=== PATIENT | female | born 1945 | race Caucasian/White ===

== ENCOUNTER 2017-01-19 16:02 | Emergency (ER) | payer MEDICARE, OTHER ==
[~2017-01-19] VITALS: Ht 160 cm; Wt 81.4 kg
[~2017-01-19 16:02] MED LIST: ACET-709 PO; BACL-19 PO; GABA100C PO; METH500T97 PO; OMEP-110 PO
[2017-01-19] MEDS ORDERED: MIRT30TA PO (16:26)
[2017-01-19 18:00] VITALS: BP 127/77
== END 2017-01-19 18:04 | disposition home or self-care (01) ==
LOC: ED 17:33
DX: I80.02 Phlebitis and thrombophlebitis of superficial vessels of left lower extremity (principal)
CPT/HCPCS: 99284

== ENCOUNTER 2017-02-11 11:24 | Day surgery (SDC) | payer MEDICARE, OTHER ==
[~2017-02-11] VITALS: Ht 170.2 cm; Wt 84.2 kg
[~2017-02-11 11:24] MED LIST changes: +MIRT30TA PO
[2017-02-11 11:57] VITALS: BP 123/81
[2017-02-11] MEDS ORDERED: LIDOCAINE 1%, 20ML ONE (13:08)
[2017-02-11 15:10] LABS: GLUCOSE, CSF 59 mg/dL (40-80)
== END 2017-02-11 17:15 | disposition home or self-care (01) ==
LOC: OUT 11:24
PROVIDERS: ATTEND Psychiatry & Neurology Neurology
DX: R41.3 Other amnesia (principal)
CPT/HCPCS: 62270; 77003; 82945; 84157; 86592; 87070; 87116; 87205; 87206; 89051; J3490; 77002

== ENCOUNTER → 2017-07-26 | Outpatient (CLI) | payer MEDICARE ==
[~2017-07-26] MED LIST changes: +ACET325T14 PO; +CYAN100T PO; +DOCU-131 PO; +KETO10TA PO; +NORT10CA PO; +OXYC5CAP2 PO
== END | disposition home or self-care (01) ==
LOC: CFH 17:01
PROVIDERS: ATTEND Psychiatry & Neurology Neurology
DX: Z12.2 Encounter for screening for malignant neoplasm of respiratory organs (principal)
CPT/HCPCS: 71046

== ENCOUNTER 2017-07-28 16:12 | Inpatient (IN) | payer MEDICARE ==
[~2017-07-28] VITALS: Ht 170.2 cm; Wt 85.1 kg
[~2017-07-28 16:12] MED LIST changes: -ACET325T14 PO; -CYAN100T PO; -DOCU-131 PO; -KETO10TA PO; -NORT10CA PO; -OXYC5CAP2 PO
[2017-07-28] MEDS ORDERED: CYAN100T PO (16:31)
[2017-07-28] MEDS ORDERED: NORT10CA PO (16:31)
[2017-07-28] MEDS ORDERED: SODIUM CHLORIDE 0.9% 1,000 ML IV ONE ×2 (16:38→19:17)
[2017-07-28] MEDS ORDERED: SODIUM CHLORIDE FLUSH 10ML SYR IVF ONE (17:00)
[2017-07-28] MEDS ORDERED: SODIUM CHLORIDE 0.9% 1,000ML IVBOLUS ONE (17:00)
[2017-07-28 17:41] LABS: BASOPHILS # (AUTO) 0.03 x10^3/uL (0-0.1); BASOPHILS % (AUTO) 0 % (0-1); EOSINOPHILS % (AUTO) 0 % (1-7); LYMPHOCYTES # (AUTO) 0.95 x10^3/uL (1-3.4); LYMPHOCYTES % (AUTO) 11 % (22-44); MD NO; MEAN CORPUSCULAR HEMOGLOBIN 31.7 pg (27.0-34.8); MEAN CORPUSCULAR HGB CONC 33.1 g/dL (32.4-35.8); MEAN CORPUSCULAR VOLUME 95.8 fL (80-100); MEAN PLATELET VOLUME 7.4 fL (7.4-10.4); MONOCYTES # (AUTO) 0.62 x10^3/uL (0.2-0.8); MONOCYTES % (AUTO) 7 % (2-9); NEUTROPHILS # (AUTO) 7.02 x10^3/uL (1.8-6.8); NEUTROPHILS % (AUTO) 81 % (42-75); PLATELET COUNT 202 x10^3/uL (130-400); RED BLOOD COUNT 3.72 x10^6/uL (3.82-5.3); RED CELL DISTRIBUTION WIDTH 13.6 % (9.6-15.2)
[2017-07-28 17:55] LABS: ALBUMIN 3.3 g/dL (3.4-5.0); ANION GAP 12 mmol/L (5-15); CALCIUM 9.3 mg/dL (8.5-10.1); CHLORIDE 104 mmol/L (98-107)
[2017-07-28 17:56] LABS: SALICYLATE LEVEL < 1.7 mg/dL (2.8-20.0)
[2017-07-28 17:57] LABS: ACETAMINOPHEN 3 mcg/mL (10-30); ALANINE AMINOTRANSFERASE 22 U/L (12-78); ALKALINE PHOSPHATASE 81 U/L (45-117); BILIRUBIN,TOTAL 0.6 mg/dL (0.2-1.0); CREATININE 1.37 mg/dL (0.55-1.02); TOTAL PROTEIN 6.6 g/dL (6.4-8.2)
[2017-07-28 18:37] LABS: AMPHETAMINE SCREEN, URINE Negative (Negative); BARBITURATE SCREEN, URINE Negative (Negative); BENZODIAZEPINE SCREEN, URINE Negative (Negative); CANNABINOID SCREEN, URINE Negative (Negative); COCAINE SCREEN, URINE Negative (Negative); METHADONE SCREEN, URINE Negative (Negative); OPIATE SCREEN, URINE Positive (Negative)
[2017-07-28 18:52] LABS: CULTURE INDICATED? YES; MICROSCOPIC INDICATED
[2017-07-28] MEDS ORDERED: DOCUSATE 100 MG CAPSULE PO PRN (19:30)
[2017-07-28] MEDS ORDERED: hydrALAzine 20 MG/ML, 1ML IVPush PRN (19:30)
[2017-07-28] MEDS ORDERED: SODIUM CHLORIDE FLUSH 10ML SYR IVF PRN (19:30)
[2017-07-28] MEDS ORDERED: ACETAMINOPHEN 325 MG TABLET PO PRN (19:30)
[2017-07-28 23:34] VITALS: BP 105/65
[2017-07-29 02:51] VITALS: BP 118/64
[2017-07-29 06:54] LABS: BASOPHILS # (AUTO) 0.08 x10^3/uL (0-0.1); BASOPHILS % (AUTO) 1 % (0-1); EOSINOPHILS # (AUTO) 0.02 x10^3/uL (0-0.4); EOSINOPHILS % (AUTO) 0 % (1-7); LYMPHOCYTES # (AUTO) 2.37 x10^3/uL (1-3.4); LYMPHOCYTES % (AUTO) 30 % (22-44); MD NO; MEAN CORPUSCULAR HEMOGLOBIN 32.3 pg (27.0-34.8); MEAN CORPUSCULAR HGB CONC 33.5 g/dL (32.4-35.8); MEAN CORPUSCULAR VOLUME 96.3 fL (80-100); MEAN PLATELET VOLUME 7.4 fL (7.4-10.4); MONOCYTES # (AUTO) 0.53 x10^3/uL (0.2-0.8); MONOCYTES % (AUTO) 7 % (2-9); NEUTROPHILS # (AUTO) 4.87 x10^3/uL (1.8-6.8); NEUTROPHILS % (AUTO) 62 % (42-75); PLATELET COUNT 200 x10^3/uL (130-400); RED CELL DISTRIBUTION WIDTH 14.1 % (9.6-15.2)
[2017-07-29 07:04] LABS: ALANINE AMINOTRANSFERASE 18 U/L (12-78); ALBUMIN 3.1 g/dL (3.4-5.0); ANION GAP 7 mmol/L (5-15); CALCIUM 8.7 mg/dL (8.5-10.1); CHLORIDE 108 mmol/L (98-107); CREATININE 1.05 mg/dL (0.55-1.02)
[2017-07-29 07:06] LABS: ALKALINE PHOSPHATASE 83 U/L (45-117); BILIRUBIN,TOTAL 0.7 mg/dL (0.2-1.0); TOTAL PROTEIN 6.5 g/dL (6.4-8.2)
[2017-07-29 09:00] VITALS: BP 108/67
[2017-07-29] MEDS ORDERED: KETOROLAC 30 MG/1 ML IVPush PRN (12:30)
[2017-07-29] MEDS: CYANOCOBALOMIN 100MCG TABLET PO SCH (13:01)
[2017-07-29] MEDS: GABAPENTIN 100 MG CAPSULE PO SCH ×3 (13:01→20:40)
[2017-07-29] MEDS: ACETAMINOPHEN 325 MG TABLET PO SCH (13:01)
[2017-07-29 14:00] VITALS: BP 120/65
[2017-07-29 20:21] VITALS: BP 121/62
[2017-07-29] MEDS: BACLOFEN 10 MG TABLET PO SCH (20:40)
[2017-07-30] MEDS: ACETAMINOPHEN 325 MG TABLET PO SCH ×2 (01:03→12:39)
[2017-07-30 01:06] VITALS: BP 123/76
[2017-07-30 08:40] VITALS: BP 148/86
[2017-07-30] MEDS: GABAPENTIN 100 MG CAPSULE PO SCH (08:43)
[2017-07-30] MEDS: CYANOCOBALOMIN 100MCG TABLET PO SCH (08:44)
[2017-07-30] MEDS: BACLOFEN 10 MG TABLET PO SCH (08:44)
[2017-07-30] MEDS ORDERED: HEPARIN 5,000 UNITS/ML, 1ML SQ SCH (12:30)
[2017-07-30] MEDS ORDERED: ACET325T14 PO ×2 (13:06)
[2017-07-30] MEDS ORDERED: KETO10TA PO (13:06)
[2017-07-30] MEDS ORDERED: DOCU-131 PO (13:06)
== END 2017-07-30 15:17 | disposition home or self-care (01) | DRG 917 ==
LOC: ED 19:16 → EDIP 19:17 → 4WST 23:27
PROVIDERS: ADMIT Internal Medicine; ATTEND Internal Medicine
PROC: 0T9B70Z Drainage of Bladder with Drainage Device, Via Natural or Artificial Opening (ICD-10-PCS; principal; 2017-07-28)
DX: T40.2X1A Poisoning by other opioids, accidental (unintentional), initial encounter (principal); N17.0 Acute kidney failure with tubular necrosis; G92 Toxic encephalopathy; S42.202A Unspecified fracture of upper end of left humerus, initial encounter for closed fracture; F03.90 Unspecified dementia, unspecified severity, without behavioral disturbance, psychotic disturbance, mood disturbance, and anxiety; F43.10 Post-traumatic stress disorder, unspecified; G47.30 Sleep apnea, unspecified; G89.29 Other chronic pain; W18.11XA Fall from or off toilet without subsequent striking against object, initial encounter; Y93.89 Activity, other specified; Y92.89 Other specified places as the place of occurrence of the external cause; Y99.8 Other external cause status; Z83.3 Family history of diabetes mellitus; I12.9 Hypertensive chronic kidney disease with stage 1 through stage 4 chronic kidney disease, or unspecified chronic kidney disease; N18.9 Chronic kidney disease, unspecified; E11.22 Type 2 diabetes mellitus with diabetic chronic kidney disease
CPT/HCPCS: 36415; 80053; 80307; 80329; 81001; 82962; 85025; 87077; 87086; 87186; 96360; J1644; J1885; G0480; J7030

== ENCOUNTER 2017-08-07 11:25 | Inpatient (IN) | payer MEDICARE ==
[~2017-08-07] VITALS: Ht 162.6 cm; Wt 87.0 kg
[~2017-08-07 11:25] MED LIST changes: +ACET325T14 PO; +CYAN100T PO; +DOCU-131 PO; +KETO10TA PO; +NORT10CA PO
[2017-08-07 11:42] VITALS: BP 131/77
[2017-08-07] MEDS ORDERED: FENTANYL PF 100 MCG/2ML ONE ×2 (13:35→16:41)
[2017-08-07] MEDS ORDERED: CLINDAMYCIN 150 MG/ML, 6ML ONE (15:43)
[2017-08-07] MEDS ORDERED: hydrALAzine 20 MG/ML, 1ML IV PRN (16:00)
[2017-08-07] MEDS ORDERED: LABETALOL 5MG/ML, 20ML IV PRN (16:00)
[2017-08-07] MEDS ORDERED: ACETAMINOPHEN 325 MG TABLET PO PRN (16:00)
[2017-08-07] MEDS ORDERED: METOPROLOL 1 MG/ML, 5ML IV PRN (16:00)
[2017-08-07] MEDS ORDERED: HYDROcodone/APAP 7.5-325MG/15ML UDC PO PRN (16:00)
[2017-08-07] MEDS ORDERED: ONDANSETRON 2MG/ML, 2ML IVPush PRN (16:00)
[2017-08-07] MEDS ORDERED: HYDROmorphone 1 MG/ML, 1ML IV PRN (16:00)
[2017-08-07] MEDS ORDERED: ALBUTEROL SULFATE 2.5 MG/3 ML NPPB PRN (16:00)
[2017-08-07] MEDS ORDERED: PROMETHAZINE 25 MG/ML, 1ML IV PRN (16:00)
[2017-08-07] MEDS ORDERED: OXYcodone 5 MG/5 ML ORAL.SOL UDC PO PRN (16:00)
[2017-08-07] MEDS ORDERED: EPHEDRINE 50 MG/ML, 1ML IVPush PRN (16:00)
[2017-08-07] MEDS ORDERED: MIDAZOLAM 1 MG/ML, 2ML IV PRN (16:00)
[2017-08-07] MEDS ORDERED: DIAZEPAM 5 MG/ML, 2ML IVPush PRN (16:00)
[2017-08-07] MEDS ORDERED: SUCCINYLCHOLINE 20 MG/ML, 10ML ONE (16:19)
[2017-08-07] MEDS ORDERED: DEXAMETHASONE 4 MG/ML, 1ML ONE (16:19)
[2017-08-07] MEDS ORDERED: GLYCOPYRROLATE 0.2MG/1ML, 5ML ONE (16:19)
[2017-08-07] MEDS ORDERED: ROCURONIUM 10 MG/ML,10ML ONE (16:19)
[2017-08-07] MEDS ORDERED: CEFAZOLIN 1,000 MG ONE (16:19)
[2017-08-07] MEDS ORDERED: ONDANSETRON 2MG/ML, 2ML ONE (16:19)
[2017-08-07] MEDS ORDERED: NEOSTIGMINE 1 MG/ML, 10ML ONE (16:19)
[2017-08-07] MEDS ORDERED: PROPOFOL 10 MG/ML, 20ML ONE (16:19)
[2017-08-07] MEDS: FENTANYL PF 100 MCG/2ML IV PRN ×3 (16:30→17:00)
[2017-08-07] MEDS ORDERED: ACETAMINOPHEN 650 MG/20.3 ML UDC ONE (16:41)
[2017-08-07] MEDS ORDERED: OXYcodone 5 MG/5 ML ORAL.SOL UDC ONE (16:42)
[2017-08-07 17:56] VITALS: BP 97/60
[2017-08-07] MEDS ORDERED: BACLOFEN 10 MG TABLET PO PRN (18:30)
[2017-08-07] MEDS ORDERED: morphine SULFATE 10 MG/ML, 1ML IV PRN (18:30)
[2017-08-07] MEDS ORDERED: ONDANSETRON 2MG/ML, 2ML IV PRN (18:30)
[2017-08-07 19:18] VITALS: BP 105/66
[2017-08-07] MEDS: [UNRECOGNIZED DRUG - REMARK] MC SCH (19:30)
[2017-08-07] MEDS: POTASSIUM CHLORIDE 40 MEQ in D5%-0.45% NACL 1,000 ML IV SCH (19:30)
[2017-08-07] MEDS ORDERED: NORTRIPTYLINE 10 MG CAPSULE PO SCH (21:00)
[2017-08-07] MEDS: DIPHENHYDRAMINE 50 MG/ML, 1ML IVPush PRN (21:07)
[2017-08-07] MEDS: OXYcodone/APAP 5/325MG TABLET PO PRN (21:07)
[2017-08-07] MEDS: CEFAZOLIN PMX 1GM/50ML 50 ML IVPB SCH (23:30)
[2017-08-08 00:16] VITALS: BP 93/54
[2017-08-08 00:53] VITALS: BP 123/68
[2017-08-08] MEDS: OXYcodone/APAP 5/325MG TABLET PO PRN ×3 (01:35→10:44)
[2017-08-08] MEDS: [UNRECOGNIZED DRUG - REMARK] MC SCH ×2 (02:13→11:30)
[2017-08-08] MEDS: DIPHENHYDRAMINE 50 MG/ML, 1ML IVPush PRN (03:04)
[2017-08-08 04:11] VITALS: BP 100/55
[2017-08-08 07:31] VITALS: BP 112/59
[2017-08-08] MEDS: CEFAZOLIN PMX 1GM/50ML 50 ML IVPB SCH (08:27)
[2017-08-08] MEDS ORDERED: CYANOCOBALOMIN 100MCG TABLET PO SCH (09:00)
[2017-08-08] MEDS: POTASSIUM CHLORIDE 40 MEQ in D5%-0.45% NACL 1,000 ML IV SCH (09:06)
[2017-08-08] MEDS ORDERED: OXYC5CAP2 PO (11:36)
== END 2017-08-08 11:59 | disposition home or self-care (01) | DRG 483 ==
LOC: INTOOBSV 11:25 → 4NOR 11:25 → OBSVTOIN 08-08 09:25 → DCLOUNGE 08-08 11:40
PROVIDERS: ADMIT Orthopaedic Surgery; ATTEND Orthopaedic Surgery
PROC: 0RRK00Z Replacement of Left Shoulder Joint with Reverse Ball and Socket Synthetic Substitute, Open Approach (ICD-10-PCS; principal; 2017-08-08)
PROC: 0LS40ZZ Reposition Left Upper Arm Tendon, Open Approach (ICD-10-PCS; 2017-08-08)
PROC: 3E0T3BZ Introduction of Anesthetic Agent into Peripheral Nerves and Plexi, Percutaneous Approach (ICD-10-PCS; 2017-08-08)
DX: S42.202A Unspecified fracture of upper end of left humerus, initial encounter for closed fracture (principal); X58.XXXA Exposure to other specified factors, initial encounter; Y93.89 Activity, other specified; Y92.89 Other specified places as the place of occurrence of the external cause; Y99.8 Other external cause status
CPT/HCPCS: C1713; C1776; G0378; J0690; J1100; J2405; J2704; J2710; J3010; J3490; J0330; J1200

== ENCOUNTER 2017-08-09 17:37 | Emergency (ER) | payer MEDICARE ==
[~2017-08-09] VITALS: Ht 167.6 cm; Wt 82.0 kg
[~2017-08-09 17:37] MED LIST changes: +OXYC5CAP2 PO
[2017-08-09 19:58] VITALS: BP 104/61
== END 2017-08-09 20:00 | disposition home or self-care (01) ==
LOC: ED 19:32
DX: S40.012A Contusion of left shoulder, initial encounter (principal); S20.219A Contusion of unspecified front wall of thorax, initial encounter; W01.190A Fall on same level from slipping, tripping and stumbling with subsequent striking against furniture, initial encounter; Y93.89 Activity, other specified; Y92.098 Other place in other non-institutional residence as the place of occurrence of the external cause; Y99.8 Other external cause status
CPT/HCPCS: 71045; 99284

== ENCOUNTER 2018-01-05 14:18 | Emergency (ER) | payer MEDICARE ==
[~2018-01-05] VITALS: Ht 170.2 cm; Wt 79.8 kg
[2018-01-05 14:24] VITALS: BP 158/82
[2018-01-05 15:25] LABS: BASOPHILS # (AUTO) 0.03 x10^3/uL (0-0.1); BASOPHILS % (AUTO) 0 % (0-1); EOSINOPHILS # (AUTO) 0.06 x10^3/uL (0-0.4); EOSINOPHILS % (AUTO) 1 % (1-7); LYMPHOCYTES # (AUTO) 2.55 x10^3/uL (1-3.4); LYMPHOCYTES % (AUTO) 30 % (22-44); MD NO; MEAN CORPUSCULAR HEMOGLOBIN 31.9 pg (27.0-34.8); MEAN CORPUSCULAR HGB CONC 33.5 g/dL (32.4-35.8); MEAN CORPUSCULAR VOLUME 95.3 fL (80-100); MEAN PLATELET VOLUME 6.9 fL (7.4-10.4); MONOCYTES % (AUTO) 7 % (2-9); NEUTROPHILS # (AUTO) 5.19 x10^3/uL (1.8-6.8); NEUTROPHILS % (AUTO) 62 % (42-75); PLATELET COUNT 250 x10^3/uL (130-400); RED BLOOD COUNT 4.45 x10^6/uL (3.82-5.3); RED CELL DISTRIBUTION WIDTH 14.8 % (9.6-15.2)
[2018-01-05 15:38] LABS: ALBUMIN 3.7 g/dL (3.4-5.0); ANION GAP 9 mmol/L (5-15); CALCIUM 9.7 mg/dL (8.5-10.1); CHLORIDE 105 mmol/L (98-107)
[2018-01-05 15:42] LABS: ALANINE AMINOTRANSFERASE 26 U/L (12-78); ALKALINE PHOSPHATASE 96 U/L (45-117); BILIRUBIN,TOTAL 0.7 mg/dL (0.2-1.0); TOTAL PROTEIN 7.5 g/dL (6.4-8.2)
[2018-01-05] MEDS ORDERED: OXYcodone/APAP 5/325MG TABLET ONE (16:03)
[2018-01-05 16:23] LABS: CULTURE INDICATED? YES; MICROSCOPIC INDICATED
[2018-01-05] MEDS ORDERED: OXYcodone/APAP 5/325MG TABLET PO ONE (16:30)
== END 2018-01-05 17:42 | disposition home or self-care (01) ==
LOC: ED 17:10
DX: S22.32XA Fracture of one rib, left side, initial encounter for closed fracture (principal); W19.XXXA Unspecified fall, initial encounter; Y93.89 Activity, other specified; Y92.009 Unspecified place in unspecified non-institutional (private) residence as the place of occurrence of the external cause; Y99.8 Other external cause status; N30.00 Acute cystitis without hematuria
CPT/HCPCS: 36415; 80053; 81001; 85025; 87077; 87086; 87186; 93005; 99285

== ENCOUNTER → 2018-06-26 | Outpatient (CLI) | payer MEDICARE ==
[~2018-06-26] MED LIST changes: +OMNIPAQUE 350 MG/ML, 100ML BOTTLE ONE
== END | disposition home or self-care (01) ==
LOC: RAD 12:56
PROVIDERS: ATTEND Psychiatry & Neurology Neurology
DX: K80.20 Calculus of gallbladder without cholecystitis without obstruction (principal); N26.1 Atrophy of kidney (terminal); C80.1 Malignant (primary) neoplasm, unspecified; F03.90 Unspecified dementia, unspecified severity, without behavioral disturbance, psychotic disturbance, mood disturbance, and anxiety; R41.3 Other amnesia; K76.89 Other specified diseases of liver
CPT/HCPCS: 71260; 74177; Q9967

== ENCOUNTER → 2018-06-29 | Outpatient (CLI) | payer MEDICARE ==
[~2018-06-29] MED LIST changes: +ACET1TAB64 PO; -OMNIPAQUE 350 MG/ML, 100ML BOTTLE ONE
== END | disposition home or self-care (01) ==
LOC: RAD 14:03
PROVIDERS: ATTEND Psychiatry & Neurology Neurology
DX: G31.89 Other specified degenerative diseases of nervous system (principal)
CPT/HCPCS: 70551

== ENCOUNTER 2018-07-01 21:21 | Inpatient (IN) | payer MEDICARE ==
[~2018-07-01] VITALS: Ht 165.1 cm; Wt 78.1 kg
[~2018-07-01 21:21] MED LIST changes: -ACET1TAB64 PO
[2018-07-01] MEDS ORDERED: ACET1TAB64 PO (22:02)
[2018-07-01] MEDS ORDERED: ASPIRIN 81 MG TABLET CHEW ONE (22:29)
[2018-07-01] MEDS ORDERED: ACETAMINOPHEN 500 MG TABLET ONE (22:29)
[2018-07-01] MEDS ORDERED: ASPIRIN 81 MG TABLET CHEW PO ONE (22:30)
[2018-07-01] MEDS ORDERED: ACETAMINOPHEN 500 MG TABLET PO ONE (22:30)
[2018-07-01 22:31] LABS: BASOPHILS # (AUTO) 0.06 x10^3/uL (0-0.1); BASOPHILS % (AUTO) 1 % (0-1); EOSINOPHILS % (AUTO) 1 % (1-7); LYMPHOCYTES # (AUTO) 2.25 x10^3/uL (1-3.4); LYMPHOCYTES % (AUTO) 20 % (22-44); MD NO; MEAN CORPUSCULAR HEMOGLOBIN 32.5 pg (27.0-34.8); MEAN CORPUSCULAR HGB CONC 33.7 g/dL (32.4-35.8); MEAN CORPUSCULAR VOLUME 96.5 fL (80-100); MEAN PLATELET VOLUME 6.7 fL (7.4-10.4); MONOCYTES # (AUTO) 0.64 x10^3/uL (0.2-0.8); MONOCYTES % (AUTO) 6 % (2-9); NEUTROPHILS # (AUTO) 8.43 x10^3/uL (1.8-6.8); NEUTROPHILS % (AUTO) 74 % (42-75); PLATELET COUNT 292 x10^3/uL (130-400); RED BLOOD COUNT 3.92 x10^6/uL (3.82-5.3)
[2018-07-01 22:44] LABS: ALANINE AMINOTRANSFERASE 20 U/L (12-78); ALBUMIN 3.6 g/dL (3.4-5.0); ANION GAP 8 mmol/L (5-15); CALCIUM 8.6 mg/dL (8.5-10.1); CHLORIDE 107 mmol/L (98-107); CREATININE 2.01 mg/dL (0.55-1.02)
[2018-07-01 22:48] LABS: ALKALINE PHOSPHATASE 75 U/L (45-117); BILIRUBIN,TOTAL 0.4 mg/dL (0.2-1.0); TOTAL PROTEIN 7.3 g/dL (6.4-8.2); TROPONIN I 0.114 ng/mL (0.000-0.045)
[2018-07-01 22:55] LABS: D-DIMER 0.59 ug/mlFEU (0.00-0.52); INTERNATIONAL NORMALIZED RATIO 0.95 (0.93-1.1); PROTHROMBIN TIME 10.1 Seconds (9.6-11.5)
[2018-07-01] MEDS ORDERED: SODIUM CHLORIDE 0.9% 1,000ML IVBOLUS ONE (23:00)
[2018-07-01] MEDS ORDERED: SODIUM CHLORIDE 0.9% 1,000 ML IV SCH (23:45)
[2018-07-02] VITALS: BP 119/77
[2018-07-02] MEDS ORDERED: POLYETHYLENE GLYCOL 17 GM PACKET PO PRN
[2018-07-02] MEDS ORDERED: ONDANSETRON 2MG/ML, 2ML IVPush PRN
[2018-07-02] MEDS ORDERED: NITROGLYCERIN 0.4 MG BOTTLE (25 TABS) SL PRN
[2018-07-02] MEDS ORDERED: HYDROcodone/APAP 5/325 TABLET PO PRN
[2018-07-02] MEDS ORDERED: morphine SULFATE 10 MG/ML, 1ML IVPush PRN
[2018-07-02] MEDS ORDERED: NITROGLYCERIN 0.4 MG/SPRAY SL PRN
[2018-07-02] MEDS ORDERED: DOCUSATE 100 MG CAPSULE PO PRN
[2018-07-02] MEDS ORDERED: ACETAMINOPHEN 325 MG TABLET PO PRN
[2018-07-02 00:13] VITALS: BP 119/77
[2018-07-02] MEDS: NORTRIPTYLINE 10 MG CAPSULE PO SCH ×2 (00:49→21:10)
[2018-07-02] MEDS: ENOXAPARIN 30 MG/0.3 ML SQ SCH (05:21)
[2018-07-02 06:12] LABS: CHOLESTEROL, TOTAL 208 mg/dL (140-239)
[2018-07-02 06:16] LABS: CHOL/HDL RATIO 4.4; HDL CHOL % 23 % (28-40); HDL CHOLESTEROL (DIRECT) 47 mg/dL (40-60); LDL CHOLESTEROL,CALCULATED 88 mg/dL (54-169); LDL/HDL RATIO 1.9 (0.5-3.0); TRIGLYCERIDES 365 mg/dL (50-200); TROPONIN I 0.074 ng/mL (0.000-0.045); VLDL CHOLESTEROL 73 mg/dL (0-25)
[2018-07-02] MEDS: INSULIN LISPRO 100 UNITS/ML, PEN SQ-INSULIN SCH ×4 (07:00→21:14)
[2018-07-02 07:30] VITALS: BP 116/70
[2018-07-02] MEDS: SENNA/DOCUSATE TABLET PO SCH (08:30)
[2018-07-02] MEDS: BACLOFEN 10 MG TABLET PO SCH ×3 (08:30→21:10)
[2018-07-02] MEDS: FAMOTIDINE 20 MG TABLET PO SCH ×2 (08:30→21:10)
[2018-07-02] MEDS ORDERED: REGADENOSON 0.4 MG/5 ML SYRINGE ONE (08:49)
[2018-07-02 11:58] LABS: FREE T4 (FREE THYROXINE) 0.96 ng/dL (0.76-1.46)
[2018-07-02 12:00] VITALS: BP 114/72
[2018-07-02 12:11] LABS: FOLATE LEVEL > 20.0 ng/mL (3.1-17.5)
[2018-07-02] MEDS ORDERED: GABAPENTIN 300 MG CAPSULE PO PRN (17:00)
[2018-07-02 19:37] VITALS: BP 131/83
[2018-07-02] MEDS ORDERED: APAP/CODEINE 300/30MG TABLET PO ONE (22:30)
[2018-07-03 03:43] VITALS: BP 159/82
[2018-07-03] MEDS: ENOXAPARIN 30 MG/0.3 ML SQ SCH (05:25)
[2018-07-03 05:57] LABS: BASOPHILS # (AUTO) 0.07 x10^3/uL (0-0.1); BASOPHILS % (AUTO) 1 % (0-1); EOSINOPHILS # (AUTO) 0.23 x10^3/uL (0-0.4); EOSINOPHILS % (AUTO) 3 % (1-7); LYMPHOCYTES % (AUTO) 38 % (22-44); MD NO; MEAN CORPUSCULAR HGB CONC 33.1 g/dL (32.4-35.8); MEAN CORPUSCULAR VOLUME 96.9 fL (80-100); MEAN PLATELET VOLUME 6.8 fL (7.4-10.4); MONOCYTES # (AUTO) 0.51 x10^3/uL (0.2-0.8); MONOCYTES % (AUTO) 7 % (2-9); NEUTROPHILS # (AUTO) 3.57 x10^3/uL (1.8-6.8); NEUTROPHILS % (AUTO) 50 % (42-75); PLATELET COUNT 261 x10^3/uL (130-400); RED BLOOD COUNT 3.93 x10^6/uL (3.82-5.3); RED CELL DISTRIBUTION WIDTH 13.6 % (9.6-15.2)
[2018-07-03 05:59] LABS: CHLORIDE 111 mmol/L (98-107)
[2018-07-03 06:21] LABS: ANION GAP 9 mmol/L (5-15); CALCIUM 8.1 mg/dL (8.5-10.1); CREATININE 0.93 mg/dL (0.55-1.02)
[2018-07-03 06:57] VITALS: BP 150/76
[2018-07-03] MEDS: INSULIN LISPRO 100 UNITS/ML, PEN SQ-INSULIN SCH ×2 (07:00→11:00)
[2018-07-03] MEDS: SENNA/DOCUSATE TABLET PO SCH (09:00)
[2018-07-03] MEDS: FAMOTIDINE 20 MG TABLET PO SCH (09:04)
[2018-07-03] MEDS: BACLOFEN 10 MG TABLET PO SCH (09:04)
[2018-07-03] MEDS ORDERED: SODIUM CHLORIDE 0.9% 1,000 ML IV SCH (10:00)
[2018-07-03] MEDS ORDERED: OMNIPAQUE 350 MG/ML, 100ML BOTTLE ONE (12:47)
[2018-07-03 14:29] VITALS: BP 124/81
== END 2018-07-03 15:03 | disposition home or self-care (01) | DRG 280 ==
LOC: ED 21:44 → EDIP 23:25 → SUATTDRO 23:31 → 5SO 07-02 00:06 → 4EST 07-03 01:31
PROVIDERS: ADMIT Family Medicine; ATTEND Family Medicine
DX: I21.4 Non-ST elevation (NSTEMI) myocardial infarction (principal); N17.0 Acute kidney failure with tubular necrosis; E11.22 Type 2 diabetes mellitus with diabetic chronic kidney disease; F03.90 Unspecified dementia, unspecified severity, without behavioral disturbance, psychotic disturbance, mood disturbance, and anxiety; F43.10 Post-traumatic stress disorder, unspecified; G47.30 Sleep apnea, unspecified; G89.29 Other chronic pain; K80.20 Calculus of gallbladder without cholecystitis without obstruction; N18.9 Chronic kidney disease, unspecified; Z83.3 Family history of diabetes mellitus; Z86.72 Personal history of thrombophlebitis; Z91.19 Patient's noncompliance with other medical treatment and regimen; R29.6 Repeated falls
CPT/HCPCS: 36415; 71045; 71275; 78452; 80048; 80053; 80061; 82607; 82746; 82962; 84439; 84443; 84484; 85025; 85379; 85610; 93005; 93017; 93970; 99285; G0378; J1650; J2785; Q9967; A9502; C9898; J7030

== ENCOUNTER → 2018-10-02 | Outpatient (CLI) | payer MEDICARE, OTHER ==
[~2018-10-02] MED LIST changes: +ACET1TAB64 PO
== END | disposition home or self-care (01) ==
LOC: CFH 14:54
PROVIDERS: ATTEND Nurse Practitioner Family
DX: D25.9 Leiomyoma of uterus, unspecified (principal)
CPT/HCPCS: 76830

== ENCOUNTER → 2020-03-31 | Outpatient (CLI) | payer MEDICARE, OTHER ==
[~2020-03-31] MED LIST changes: +AMOX1TAB12 PO; +BACL20TA PO; -CYAN100T PO; +CYAN100T22 PO; +DIPH25CA61 PO; +DIVA125C2 PO; +FOLI-17 PO; +INSU100I11 SQ-INSULIN; +LEVE250T28 PO; +LEVE500T53 PO; +LEVO25TA4 PO; +MULT-90 PO; +OMEP40CA42 PO; +PRED10TA PO; +PRED50TA PO; +THIA100T67 PO; +TYRO500C2 MM; +VITA1TAB25 MT
== END | disposition home or self-care (01) ==
LOC: RAD 15:34
PROVIDERS: ATTEND Psychiatry & Neurology Neurology
DX: C34.90 Malignant neoplasm of unspecified part of unspecified bronchus or lung (principal)
CPT/HCPCS: 71046

== ENCOUNTER 2020-04-14 14:07 | Outpatient (CLI) | payer MEDICARE, OTHER | END 2020-04-14 23:59 | disposition home or self-care (01) | LOC: RAD 14:07 → STAR 23:59 | PROVIDERS: ATTEND Specialist | DX: Z01.818 Encounter for other preprocedural examination (principal); S22.000A Wedge compression fracture of unspecified thoracic vertebra, initial encounter for closed fracture; X58.XXXA Exposure to other specified factors, initial encounter; Y93.89 Activity, other specified; Y92.89 Other specified places as the place of occurrence of the external cause; Y99.8 Other external cause status | CPT/HCPCS: 93005 ==

== ENCOUNTER 2020-06-14 14:55 | Emergency (ER) | payer MEDICARE, OTHER ==
[~2020-06-14] VITALS: Ht 167.6 cm; Wt 58.1 kg
[~2020-06-14 14:55] MED LIST changes: +AMOX1TAB64 PO; +MIRT-38 PO; -MIRT30TA PO
[2020-06-14 15:10] VITALS: BP 135/85
[2020-06-14] MEDS ORDERED: NEOSPORIN OINT. PKT 1 PACKET ONE (15:33)
== END 2020-06-14 16:11 | disposition home or self-care (01) ==
LOC: ED 16:00
DX: S01.01XA Laceration without foreign body of scalp, initial encounter (principal); E11.9 Type 2 diabetes mellitus without complications; Z90.89 Acquired absence of other organs; W01.0XXA Fall on same level from slipping, tripping and stumbling without subsequent striking against object, initial encounter; Y93.89 Activity, other specified; Y92.098 Other place in other non-institutional residence as the place of occurrence of the external cause; Y99.8 Other external cause status
CPT/HCPCS: 99282

== ENCOUNTER 2021-03-13 17:05 | Emergency (ER) | payer MEDICARE, OTHER ==
[~2021-03-13] VITALS: Ht 170.2 cm; Wt 64.0 kg
[~2021-03-13 17:05] MED LIST changes: -FOLI-17 PO; +FOLI1TAB32 PO; -OMEP40CA42 PO; +OMEP40CA8 PO
[2021-03-13 20:46] LABS: MICROSCOPIC AUTO
[2021-03-13 20:47] LABS: BASOPHILS % (AUTO) 1 % (0-1); EOSINOPHILS % (AUTO) 1 % (1-7); LYMPHOCYTES % (AUTO) 43 % (22-44); MEAN CORPUSCULAR HEMOGLOBIN 33.3 pg (27.0-34.8); MEAN CORPUSCULAR HGB CONC 32.3 g/dL (32.4-35.8); MEAN PLATELET VOLUME 6.1 fL (7.4-10.4); MONOCYTES % (AUTO) 8 % (2-9); NEUTROPHILS % (AUTO) 47 % (42-75); PLATELET COUNT 280 x10^3/uL (130-400); RED BLOOD COUNT 3.85 x10^6/uL (3.82-5.3); RED CELL DISTRIBUTION WIDTH 14.6 % (9.6-15.2)
[2021-03-13] MEDS ORDERED: LIDODERM 5% PATCH TD ONE ×2 (20:47→21:00)
--- NOTE | 2021-03-13 20:47 | NUR ---
ASSUMED CARE OF PATIENT. PATIENT REPORTS SHE FELL LAST WEEK. PT C/O LEFT SHOULDER PAIN AND BRUSING. AT BEDSIDE. VS STABLE. CALL LIGHT IN PLACE. WILL CONTINUE TO MONITOR.
--- NOTE | 2021-03-13 20:48 | NUR ---
REPORT GIVEN TO FRIDA CHAWLA FOR BREAK
--- NOTE | 2021-03-13 20:55 | NUR ---
RELIEF RN: LIDO PATCH APPLIED. FAMILY AT BS. DENIES ANY NEEDS. WILL CTM
[2021-03-13 20:56] LABS: ANION GAP 8 mmol/L (5-15); CALCIUM 8.9 mg/dL (8.5-10.1); CHLORIDE 106 mmol/L (98-107); CREATININE 0.96 mg/dL (0.55-1.02)
[2021-03-13 21:11] VITALS: BP 159/87
== END 2021-03-13 21:22 | disposition home or self-care (01) ==
LOC: ED 20:48
DX: S40.012A Contusion of left shoulder, initial encounter (principal); E11.40 Type 2 diabetes mellitus with diabetic neuropathy, unspecified; I24.9 Acute ischemic heart disease, unspecified; W01.0XXA Fall on same level from slipping, tripping and stumbling without subsequent striking against object, initial encounter; Y93.89 Activity, other specified; Y92.009 Unspecified place in unspecified non-institutional (private) residence as the place of occurrence of the external cause; Y99.8 Other external cause status
CPT/HCPCS: 36415; 80048; 81001; 82040; 85025; 87086; 99283

== ENCOUNTER 2021-03-19 14:41 | Outpatient (CLI) | payer MEDICARE, OTHER | END 2021-03-19 23:59 | disposition home or self-care (01) | LOC: CFH 14:41 | PROVIDERS: ATTEND Nurse Practitioner | DX: S42.032A Displaced fracture of lateral end of left clavicle, initial encounter for closed fracture (principal); M85.812 Other specified disorders of bone density and structure, left shoulder; X58.XXXA Exposure to other specified factors, initial encounter; Y93.89 Activity, other specified; Y92.89 Other specified places as the place of occurrence of the external cause; Y99.8 Other external cause status ==